=== PATIENT | male | born 1960 | race Caucasian/White ===

== ENCOUNTER → 2017-03-17 | Day surgery (SDC) | payer BC ==
[~2017-03-17] MED LIST: BUPIVACAINE HCL PF 0.5% 30 ML VIAL ONE; BUPIVACAINE/EPINEPHRINE 0.25% 50 ML VIAL INFIL ONE; BUPIVACAINE/EPINEPHRINE 0.5% PF 10 ML VIAL ONE; ENOX40P SQ; HYDR-3129 PO; LACTATED RINGER'S 1000 ML INJ 1,000 ML ONE; MIDAZOLAM HCL 2 MG/2 ML VIAL ONE; PROPOFOL 200 MG/20 ML AMP IV ONE; SULF-154 PO; ceFAZolin INJ 1,000 MG VIAL ONE
--- NOTE | 2017-03-17 15:23 | MP ---
cc: ALBERT NAYAK M.D. 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 PROCEDURE Right elbow surgical excision of olecranon bursa gout tophi SURGEON Dr. 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 He was evaluated by the undersigned in the [facility]. Patient counseled as to the risks, benefits and alternatives to the above-named proposed surgical procedure and we did wish to proceed with surgery. PROCEDURE IN DETAIL A written consent was obtained. The patient identified by name, taken to the operating room, placed supine and general anesthesia was administered, as well as one gram of IV Ancef. The patient was carefully turned to the left lateral decubitus position, a lateral arm roll was placed. All bony prominences and pressure points were well padded. The right upper extremity was prepped and draped using Isopropyl alcohol, Hibiclens solution and DuraPrep solution. After a time-out was performed, a longitudinal incision was made over the posterior aspect of the right elbow. Careful circumferential dissection was carried around the region of the tophi deposition and deposit. A surgical excision was performed with the use of Metzenbaum scissors, a 15 blade scalpel and Bovie cautery. After complete excision, the specimen was passed off the table and sent to pathology. The surgical wound was thoroughly irrigated with sterile saline solution. Bovie cautery was again used for hemostasis. The subcutaneous layer was then closed with 3-0 Vicryl suture. Skin incisions were closed with 3-0 nylon. Sterile dressing applied. The patient tolerated the procedure well. No intraoperative complications noted. Carlos Daugherty, Physician Maintenance Electrician Certified, was present during the entire procedure to include patient positioning, and the procedure itself. The medical necessity of a physician assistant construction superintendent was indicated in this case due to the complexity of the procedure. He assisted with appropriate surgical exposure and manipulation of the extremity especially with surgical resection of this mass and deposition, as well as the wound closure. MD KAR Hayes/BRETT /3:09 PM /3:13 PM
== END | disposition home or self-care (01) ==
LOC: ESDC 12:28
PROVIDERS: ATTEND Orthopaedic Surgery Sports Medicine
DX: M1A.0211 Idiopathic chronic gout, right elbow, with tophus (tophi) (principal)
CPT/HCPCS: 01710; 24105; 88304; J0690; J2250; J3010; J7120